=== PATIENT | male | born 1970 | race Caucasian/White ===

== ENCOUNTER 2017-05-11 11:53 | Emergency (ER) | payer OTHER ==
--- NOTE | ~2017-05-11 | CR173 ---
[facility] A Service of [facility] RADIOLOGY TEXT RESULTS PATIENT: BLAINE SUN LOCATION: CFT[facility] : 70 UNIT #: [id number] AGE: [address]: Charis Garces APRN SEX: M ORDER DR: [id number] [facility] [address] [place], [place] [address] [id number] MR#: [id number] Acc #: [id number] NAME: BLAINE SUN : 1970 SEX: M STUDY DATE/TIME: 05/11/2017 12:26 UNIT: [facility] ROOM: STUDY DESCRIPTION: CR Knee 3 Views Rt Attending Physician: Charis Garces A.P.R.N. Ordering Physician: Ed Doctor [id number] [facility] Primary Care Physician: Primary Care Physician No MEDICAL IMAGING REPORT This report is preliminary unless electronic signature is present EXAM Right knee 3 views 05/11/2017 1226 hours HISTORY Patient hit right knee in a car door 3 days ago. Knee pain, extreme knee pain with difficulty flexing knee. COMPARISON 01/31/2015. FINDINGS AP, lateral views and a sunrise view were performed. There is a small knee joint effusion present with no fracture or dislocation. No significant joint space loss. There is prepatellar edema and soft tissue swelling similar to 01/31/2015. Spurring at the proximal patella at the quadriceps insertion site unchanged. IMPRESSION 1. Very small knee joint effusion without lipohemarthrosis or fracture. 2. There is prepatellar soft tissue swelling. 3. Possible edema medially near the medial collateral ligament insertion site on the femur which could indicate MCL sprain. Correlate clinically. STAT * RESULT Dictated by... Moon Zapata M.D. THIS IS AN ELECTRONICALLY VERIFIED REPORT Moon Zapata M.D. at 05/11/2017 2:29 PM [facility]. [facility] A Service of [facility] RADIOLOGY TEXT RESULTS PATIENT: BLAINE SUN LOCATION: [facility] : 70 UNIT #: [id number] AGE: [address]: Charis Garces APRN SEX: M ORDER DR: TD: 05/11/2017 12:57 JOB #: [id number] MEDICAL IMAGING REPORT Page 1 of 1 COPY
== END 2017-05-11 13:23 | disposition home or self-care (01) ==
LOC: CED 11:53 → CFTX 11:53
DX: S83.411A Sprain of medial collateral ligament of right knee, initial encounter (principal); I10 Essential (primary) hypertension; W22.8XXA Striking against or struck by other objects, initial encounter; Y92.009 Unspecified place in unspecified non-institutional (private) residence as the place of occurrence of the external cause
CPT/HCPCS: 29505; 29515; 73562; 96372; 99283; J1885